=== PATIENT | male | born 1985 | race Caucasian/White ===

== ENCOUNTER 2017-11-28 17:37 | Emergency (ER) | payer SELFPAY ==
--- NOTE | 2017-11-28 18:47 | RAD REPORT ---
EXAM DESCRIPTION: CT - Abdomen Pelvis Wo Contrast - 11/28/2017 6:40 pm CLINICAL HISTORY: Abdominal pain. trauma, no contrast;Abd pain COMPARISON: No comparisons TECHNIQUE: CT imaging of the abdomen and pelvis was performed without contrast. Solid organ, bowel a nd vascular assessment is limited due to lack of IV and oral contrast. All CT scans are performed using dose optimization technique as appropriate and may include automated exposure control or mA/KV adjustment according to patient size. FINDINGS: The lower lung jeffrey are clear. The liver, spleen, pancreas, adrenal glands and kidneys are within normal limits for a limited non-co ntrast examination. No bowel obstruction, free air, free fluid or abscess. The appendix is normal. The osseous structures are within normal limits. IMPRESSION: No acute intra-abdominal or pelvic findings. A limited non-contrast examination was performed as detailed.
[2017-11-28 18:57] LABS: Urine Blood NEGATIVE (NEG); Urine Glucose NEGATIVE (NEG); Urine Protein NEGATIVE (NEG); Urine Specific Gravity >1.030 (1.005-1.030); Urine pH 5.5 (5.0-7.0)
--- NOTE | 2017-11-28 19:40 | EDPHYS ---
Physician Documentation [facility] Name: Merlin Nieves Age: 32 yrs Sex: Male : 1985 Arrival Date: 11/28/2017 Time: 17:43 Bed 30 Private MD: None, None ED Physician Ken Patel HPI: 11/28 18:26 This 32 yrs old Male presents to ER via Ambulatory with complaints of Low kb Back Pain. 18:26 The patient presents with pain that is acute, and a crush injury, from a heavy object. kb The symptoms are located in the right low back. The pain radiates to the right leg. The problem was sustained heavy cage fell onto pt's RLQ and pinned him . Onset: The symptoms/episode began/occurred yesterday. Modifying factors: The patient symptoms are alleviated by nothing, the patient symptoms are aggravated by standing, walking. Associated signs and symptoms: Pertinent positives: swelling to RLQ. Severity of symptoms: At their worst the symptoms were moderate, in the emergency department the symptoms are unchanged. The patient has not experienced similar symptoms in the past. The patient has not recently seen a physician. Pt c/o low back pain that radiates down right leg when standing and walking after a heavy cage fell on him yesterday and pinned him. Historical: - Allergies: 17:48 No Known Allergies; aj - Home Meds: 17:48 None [Active]; aj - PMHx: 17:48 None; aj - PSHx: 17:48 None; aj - Immunization history:: Adult Immunizations up to date. - Social history:: Smoking status: Patient uses tobacco products, smokes one-half pack cigarettes per day. - Ebola Screening: : Patient negative for fever greater than or equal to 101.5 degrees Fahrenheit, and additional compatible Ebola Virus Disease symptoms Patient denies exposure to infectious person Patient denies travel to an Ebola-affected area in the 21 days before illness onset No symptoms or risks identified at this time. ROS: 18:23 Constitutional: Negative for fever, chills, and weight loss, Cardiovascular: Negative kb for chest pain, palpitations, and edema, Respiratory: Negative for shortness of breath, cough, wheezing, and pleuritic chest pain, MS/Extremity: Negative for injury and deformity, Skin: Negative for injury, rash, and discoloration, Neuro: Negative for headache, weakness, numbness, tingling, and seizure. 18:23 Abdomen/GI: Positive for swelling to RLQ, Negative for nausea, vomiting, and diarrhea. 18:23 Back: Positive for pain with movement, of the right low back. Exam: 18:23 Constitutional: This is a well developed, well nourished patient who is awake, alert, kb and in no acute distress. Head/Face: Normocephalic, atraumatic. Chest/axilla: Normal chest wall appearance and motion. Nontender with no deformity. No lesions are appreciated. Cardiovascular: Regular rate and rhythm with a normal S1 and S2. No gallops, murmurs, or rubs. Normal PMI, no JVD. No pulse deficits. Respiratory: Lungs have equal breath sounds bilaterally, clear to auscultation and percussion. No rales, rhonchi or wheezes noted. No increased work of breathing, no retractions or nasal flaring. Abdomen/GI: Soft, non-tender, with normal bowel sounds. No distension or tympany. No guarding or rebound. No evidence of tenderness throughout. Back: No spinal tenderness. No costovertebral tenderness. Full range of motion. Skin: Warm, dry with normal turgor. Normal color with no rashes, no lesions, and no evidence of cellulitis. MS/ Extremity: Pulses equal, no cyanosis. Neurovascular intact. Full, normal range of motion. Neuro: Awake and alert, GCS 15, oriented to person, place, time, and situation. Cranial nerves II-XII grossly intact. Motor strength 5/5 in all extremities. Sensory grossly intact. Cerebellar exam normal. Normal gait. Vital Signs: 17:48 BP 132 / 78; Pulse 98; Resp 16; Temp 98.0; Pulse Ox 99% on R/A; Weight 127.01 kg; aj Height 6 ft. 4 in. (193.04 cm); 19:55 BP 147 / 77; Pulse 78; Resp 18; Pulse Ox 100% on R/A; Pain 4/10; mg2 17:48 Body Mass Index 34.08 (127.01 kg, 193.04 cm) aj MDM: 17:58 Patient medically screened. kb 18:26 Data reviewed: vital signs, nurses notes. Data interpreted: Pulse oximetry: on room air kb is 99 %. Interpretation: normal. 18:51 Counseling: I had a detailed discussion with the patient and/or guardian regarding: the kb historical points, exam findings, and any diagnostic results supporting the discharge/admit diagnosis, radiology results, the need for outpatient follow up, a family practitioner, to return to the emergency department if symptoms worsen or persist or if there are any questions or concerns that arise at home. 11/28 18:30 Order name: Urine Dipstick--Ancillary (enter results) bd 11/28 18:58 Order name: Urine Dipstick-Ancillary; Complete Time: 18:59 EDMS 11/28 18:21 Order name: Urine Dipstick-Ancillary (obtain specimen); Complete Time: 18:28 kb 11/28 18:21 Order name: CT Abd/Pelvis - Without Cont kb 11/28 18:49 Order name: CT; Complete Time: 18:50 EDMS Administered Medications: 19:55 Drug: [place] (7.5 mg-325 mg) 1 tabs Route: PO; mg2 19:55 Follow up: Response: No adverse reaction; Medication administered at discharge. mg2 Disposition: 11/28/17 19:39 Discharged to Home. Impression: Low back pain. - Condition is Stable. - Discharge Instructions: Back Pain, Adult, [id number]. - Prescriptions for Cyclobenzaprine 10 mg Oral Tablet - take 1 tablet by ORAL route every 8 hours As needed; 21 tablet. Diclofenac Sodium 75 mg Oral Tablet, Delayed Release (E.C.) - take 1 tablet by ORAL route 2 times per day As needed; 30 tablet. - Medication Reconciliation Form, Thank You Letter, Antibiotic Education, Prescription Opioid Use form. - Follow up: Emergency Department; When: As needed; Reason: Worsening of condition. Follow up: Private Physician; When: 2 - 3 days; Reason: Recheck today's complaints, Continuance of care, Re-evaluation by your physician. Addendum: 12/01/2017 19:03 Co-signature as Attending Physician, Ken Patel MD. r n Signatures: Dispatcher [employer] EDDanica Loving, SUMANTH ARNOLD-Ayanna Singh RN RN aj Nieto, Roman, MD MD rn Gardose, Michele, RN RN mg2 Corrections: (The following items were deleted from the chart) 11/28 18:26 18:23 Abdomen/GI: Positive for abdominal pain, Negative for nausea, vomiting, and kb diarrhea, kb 19:55 19:39 11/28/2017 19:39 Discharged to Home. Impression: Low back pain. Condition is mg2 Stable. Forms are Medication Reconciliation Form, Thank You Letter, Antibiotic Education, Prescription Opioid Use. Follow up: Emergency Department; When: As needed; Reason: Worsening of condition. Follow up: Private Physician; When: 2 - 3 days; Reason: Recheck today's complaints, Continuance of care, Re-evaluation by your physician. kb
--- NOTE | 2017-11-28 19:40 | ER ---
Nurse's Notes [facility] Name: Merlin Nieves Age: 32 yrs Sex: Male : 1985 Arrival Date: 11/28/2017 Time: 17:43 Bed 30 Private MD: None, None Diagnosis: Low back pain Presentation: 11/28 17:46 Presenting complaint: Patient states: Reports pain to low back with right leg numbness, aj RLQ "swelling" after being hit with large heavy "cage" yesterday. No bruising noted. Patient ambulated to triage with steady gait. Transition of care: patient was not received from another setting of care. Onset of symptoms was November 27, 2017. Risk Assessment: Do you want to hurt yourself or someone else? Patient reports no desire to harm self or others. Initial Sepsis Screen: Does the patient meet any 2 criteria? No. Patient's initial sepsis screen is negative. Does the patient have a suspected source of infection? No. Patient's initial sepsis screen is negative. Care prior to arrival: None. 17:46 Method Of Arrival: Ambulatory aj 17:46 Acuity: FRANCISCO 3 aj Triage Assessment: 17:48 General: Appears in no apparent distress. comfortable, Behavior is calm, cooperative, aj appropriate for age. Pain: Complains of pain in low back area, coccyx, right lower back, right gluteus francisco, right gluteal fold, right lower quadrant, right femoral area, right inguinal area and right iliac crest. Neuro: Level of Consciousness is awake, alert, obeys commands, Oriented to person, place, time, situation, Appropriate for age. Respiratory: Airway is patent Respiratory effort is even, unlabored, Respiratory pattern is regular, symmetrical. Derm: Skin is intact, is healthy with good turgor, Skin is pink, warm \\T\\ dry. normal. Musculoskeletal: Swelling absent Reports numbness in right leg. Historical: - Allergies: 17:48 No Known Allergies; aj - Home Meds: 17:48 None [Active]; aj - PMHx: 17:48 None; aj - PSHx: 17:48 None; aj - Immunization history:: Adult Immunizations up to date. - Social history:: Smoking status: Patient uses tobacco products, smokes one-half pack cigarettes per day. - Ebola Screening: : Patient negative for fever greater than or equal to 101.5 degrees Fahrenheit, and additional compatible Ebola Virus Disease symptoms Patient denies exposure to infectious person Patient denies travel to an Ebola-affected area in the 21 days before illness onset No symptoms or risks identified at this time. Screenin:56 Abuse screen: Denies threats or abuse. Denies injuries from another. Nutritional mg2 screening: No deficits noted. Tuberculosis screening: No symptoms or risk factors identified. Fall Risk None identified. Assessment: 18:17 General: Appears in no apparent distress. comfortable, Behavior is calm, cooperative. mg2 Pain: Complains of pain in back Pain does not radiate. Pain currently is 2 out of 10 on a pain scale. Quality of pain is described as aching. Neuro: Level of Consciousness is awake, alert, obeys commands, Oriented to person, place, time, situation. Cardiovascular: Capillary refill < 3 seconds Patient's skin is warm and dry. Respiratory: Airway is patent Respiratory effort is even, unlabored, Respiratory pattern is regular, symmetrical. GI: Abdomen is round non-distended. : No signs and/or symptoms were reported regarding the genitourinary system. EENT: No signs and/or symptoms were reported regarding the EENT system. Derm: Skin is intact, Skin is pink, warm \\T\\ dry. normal. Musculoskeletal: Circulation, motion, and sensation intact. Injury Description: pain only, no swelling noted. 19:55 Reassessment: Patient appears in no apparent distress at this time. Patient and/or mg2 family updated on plan of care and expected duration. Pain level reassessed. Patient is alert, oriented x 3, equal unlabored respirations, skin warm/dry/pink. Vital Signs: 17:48 BP 132 / 78; Pulse 98; Resp 16; Temp 98.0; Pulse Ox 99% on R/A; Weight 127.01 kg; aj Height 6 ft. 4 in. (193.04 cm); 19:55 BP 147 / 77; Pulse 78; Resp 18; Pulse Ox 100% on R/A; Pain 4/10; mg2 17:48 Body Mass Index 34.08 (127.01 kg, 193.04 cm) aj ED Course: 17:43 Patient arrived in ED. mr 17:43 None, None is Private Physician. mr 17:48 Triage completed. aj 17:48 Arm band placed on left wrist. Patient placed in an exam room. aj 17:55 Luis Alberto Emmanuel, RN is Primary Nurse. mg2 17:56 Patient has correct armband on for positive identification. Pulse ox on. NIBP on. Door mg2 closed. Warm blanket given. 17:58 Danica Bell [facility]-C [facility]. kb 17:58 Ken Patel MD is Attending Physician. kb 18:40 CT completed. Patient tolerated procedure well. Patient moved back from CT. nj Administered Medications: 19:55 Drug: [place] (7.5 mg-325 mg) 1 tabs Route: PO; mg2 19:55 Follow up: Response: No adverse reaction; Medication administered at discharge. mg2 Outcome: 19:39 Discharge ordered by MD. kb 19:55 Patient left the ED. mg2 Signatures: Danica Bell FNP-C FNP-Ayanna Singh, RN RN Mary Vaz Vikram Boudreaux Luis Alberto Mccann, RN RN mg2
[2017-11-28] MEDS ORDERED: HYDROCODONE/APAP 7.5/325 MG TAB ONE (20:00)
[2017-11-28 20:03] VITALS: TEMP 98
[2017-11-28 20:05] VITALS: BP 147/77; O2SAT 100
== END 2017-11-28 19:55 | disposition home or self-care (01) ==
LOC: ER 17:37
DX: M54.5 Low back pain (principal); F17.210 Nicotine dependence, cigarettes, uncomplicated
CPT/HCPCS: 74176; 81003; 99284